=== PATIENT | male | born 1965 | race Caucasian/White ===

== ENCOUNTER 2024-12-01 12:47 | Emergency (ER) | payer MEDICARE, MEDICAID ==
[~2024-12-01] VITALS: Ht 172.7 cm; Wt 78.0 kg
[~2024-12-01 12:47] MED LIST: FLEXERIL5 M1 PO; NAPROXEN500 MG PO
[2024-12-01 12:56] VITALS: BP 119/79
[2024-12-01 13:01] VITALS: BP 109/68
[2024-12-01] MEDS ORDERED: IPRATROPIUM-Albuterol 0.5MG-2.5MG/3 ML NEB ONE ×2 (13:10)
[2024-12-01] MEDS ORDERED: predniSONE 20 MG/TAB PO ONE (13:10)
[2024-12-01 13:30] VITALS: BP 117/72
[2024-12-01] MEDS ORDERED: TAM75CAP PO (13:48)
[2024-12-01] MEDS ORDERED: PREDNISONE50 MG PO (13:48)
[2024-12-01 14:03] VITALS: BP 119/72
== END 2024-12-01 14:08 | disposition home or self-care (01) ==
LOC: ED 12:47
DX: J11.1 Influenza due to unidentified influenza virus with other respiratory manifestations (principal); F17.210 Nicotine dependence, cigarettes, uncomplicated; Z20.822 Contact with and (suspected) exposure to COVID-19